=== PATIENT | male | born 1985 | race Caucasian/White ===

== ENCOUNTER 2016-06-30 16:06 | Outpatient (CLI) | payer MEDICAID | END 2016-06-30 16:07 | disposition home or self-care (01) | DX: M25.512 Pain in left shoulder (principal) ==

== ENCOUNTER 2020-04-19 09:57 | Outpatient (CLI) | payer BC, OTHER | END 2020-04-19 09:58 | disposition home or self-care (01) | LOC: COV 09:57 | PROVIDERS: ATTEND Family Medicine | DX: R05 Cough (principal); R53.83 Other fatigue; R19.7 Diarrhea, unspecified; R09.81 Nasal congestion; J34.89 Other specified disorders of nose and nasal sinuses; R11.2 Nausea with vomiting, unspecified; Z20.822 Contact with and (suspected) exposure to COVID-19 ==

== ENCOUNTER 2022-02-01 20:10 | Outpatient (CLI) | payer OTHER | END 2022-02-01 20:11 | disposition left against medical advice (07) | LOC: EMS 20:10 | DX: R45.851 Suicidal ideations (principal); F10.129 Alcohol abuse with intoxication, unspecified ==

== ENCOUNTER 2022-05-25 09:46 | Outpatient (CLI) | payer OTHER ==
--- NOTE | 2022-05-25 17:26 | XRAY Report ---
PROCEDURE: Wrist 3 View RT INDICATIONS: SPRAIN IN RIGHT WRIST TECHNIQUE: 3 views of the wrist were acquired. COMPARISON: None FINDINGS: Bones: No fractures or dislocations. No suspicious bony lesions. Soft tissues: No suspicious soft tissue calcifications. IMPRESSION: No visualized acute fracture or dislocation. However, occult injury cannot be excluded. Recommend alfonzo rt interval imaging follow-up in 7-10 days as clinically indicated for additional evaluation. Reviewed by: Estephanie Herzog MD on 05/25/2022 4:44 PM [facility] Approved by: Estephanie Herzog MD on 05/25/2022 4:44 PM [facility] Station ID: [id number]
== END 2022-05-25 09:47 | disposition home or self-care (01) ==
LOC: DI 09:46
PROVIDERS: ATTEND Physician Assistant Medical
DX: S63.591A Other specified sprain of right wrist, initial encounter (principal)